=== PATIENT | female | born 1960 | race Caucasian/White ===

== ENCOUNTER 2018-02-17 11:26 | Emergency (ER) | payer SELFPAY ==
[~2018-02-17] VITALS: Ht 167.6 cm; Wt 66.0 kg
[2018-02-17 11:36] VITALS: O2SAT 100
--- NOTE | 2018-02-17 11:44 | PD ---
HPI Chief Complaint: Dog bite Time Seen by Provider: 11:29 Travel History International Travel<30 days: No Contact w/Intl Traveler<30days: No Traveled to known affect area: No History of Present Illness HPI Per patient she has 3 [employer] rescue dogs, and 1 of them apparently is abused and has a history of and has already bitten her in the past back in 2016 which is incidentally the last time she got her tetanus updated. At that time she laceration to her biceps medial aspect area that was repaired. Today she comes in with a right mid forearm dog bite with some lacerations are jagged and irregular. She is however able to move her fingers all independently Patient denies any previous allergies to medications PFSH Social History Tobacco Use: No Allergies-Medications (Allergen,Severity, Reaction): Coded Allergies: No Known Allergies (Unverified , 02/17/18) Reported Meds & Prescriptions Reported Meds & Active Scripts Active No Active Prescriptions or Reported Medications Review of Systems General / Constitutional: No: Fever Eyes: No: Visual changes HENT: No: Headaches Cardiovascular: No: Chest Pain or Discomfort Respiratory: No: Shortness of Breath Gastrointestinal: No: Abdominal Pain Genitourinary: No: Dysuria Musculoskeletal: No: Pain Skin: Positive Other (Dog bite with lacerations) Neurologic: No: Weakness Psychiatric: No: Depression Endocrine: No: Polydipsia Hematologic/Lymphatic: No: Easy Bruising Physical Exam Narrative GENERAL: SKIN: Warm and dry. Isolated injury to mid forearm right: LACERATION#3 LOCATION: dorsal right arm LENGTH: 1 cm NUMBER OF STITCHES/RAJENDRA: 1 suture LACERATION#4 LOCATION: dorsal right arm LENGTH: 1 cm NUMBER OF STITCHES/RAJENDRA: 1 suture LACERATION#1 LOCATION: ventral right arm LENGTH: 5 cm . LACERATION#2 LOCATION: ventral right arm LENGTH: 5 cm NUMBER OF STITCHES/RAJENDRA: 7 sutures (superficial), 1 (deep) HEAD: Atraumatic. Normocephalic. EYES: Pupils equal and round. No scleral icterus. No injection or drainage. ENT: No nasal bleeding or discharge. Mucous membranes pink and moist. NECK: Trachea midline. No JVD. CARDIOVASCULAR: Regular rate and rhythm. RESPIRATORY: No accessory muscle use. Clear to auscultation. Breath sounds equal bilaterally. GASTROINTESTINAL: Abdomen soft, non-tender, nondistended. MUSCULOSKELETAL: Extremities without clubbing, cyanosis, or edema. No obvious deformities. NEUROLOGICAL: Awake and alert. No obvious cranial nerve deficits. Motor grossly within normal limits. Five out of 5 muscle strength in the arms and legs. Normal speech. PSYCHIATRIC: Appropriate mood and affect; insight and judgment normal. Data Data Last Documented VS Vital Signs Date Time Temp Pulse Resp B/P (MAP) Pulse Ox O2 Delivery O2 Flow Rate FiO2 02/17/18 12:10 75 21 125/79 (94) 100 Room Air Orders Orders I-Stat Profile (02/17/18 11:30) Complete Blood Count With Diff (02/17/18 11:30) Prothrombin Time / Inr (Pt) (02/17/18 11:30) Act Partial Throm Time (Ptt) (02/17/18 11:30) Type And Screen (02/17/18 11:30) Iv Access Insert/Monitor (02/17/18 11:30) Ecg Monitoring (02/17/18 11:30) Oximetry (02/17/18 11:30) Oxygen Administration (02/17/18 11:30) Forearm (2vws) (02/17/18 ) Splint Or Brace Apply/Monitor (02/17/18 11:37) Comprehensive Metabolic Panel (02/17/18 11:37) Creatine Kinase (Cpk) (02/17/18 11:37) Lidocaine Pf 1% Inj (Xylocaine-Mpf 1% In (02/17/18 12:00) Lidocaine Pf 1% Inj (Xylocaine-Mpf 1% In (02/17/18 12:00) Morphine Inj (Morphine Inj) (02/17/18 12:00) Ondansetron Inj (Zofran Inj) (02/17/18 12:00) Piperacil-Tazo 3.375 Gm Premix (Zosyn 3. (02/17/18 12:30) Clindamycin 900 Mg/Ns Premix (Cleocin 90 (02/17/18 12:30) Ondansetron Inj (Zofran Inj) (02/17/18 12:30) Morphine Inj (Morphine Inj) (02/17/18 12:30) Splinting (02/17/18 ) Labs Laboratory Tests Test 02/17/18 11:20 02/17/18 11:30 White Blood Count 8.3 TH/MM3 Red Blood Count 3.84 MIL/MM3 Hemoglobin 11.5 GM/DL Hematocrit 34.8 % Mean Corpuscular Volume 90.6 FL Mean Corpuscular Hemoglobin 29.9 PG Mean Corpuscular Hemoglobin Concent 33.0 % Red Cell Distribution Width 15.3 % Platelet Count 258 TH/MM3 Mean Platelet Volume 8.5 FL Neutrophils (%) (Auto) 67.9 % Lymphocytes (%) (Auto) 24.8 % Monocytes (%) (Auto) 5.0 % Eosinophils (%) (Auto) 1.6 % Basophils (%) (Auto) 0.7 % Neutrophils # (Auto) 5.7 TH/MM3 Lymphocytes # (Auto) 2.1 TH/MM3 Monocytes # (Auto) 0.4 TH/MM3 Eosinophils # (Auto) 0.1 TH/MM3 Basophils # (Auto) 0.1 TH/MM3 CBC Comment DIFF FINAL Differential Comment Bedside Hemoglobin 10.2 G/DL Bedside Hematocrit 30.0 % Prothrombin Time 10.7 SEC Prothromb Time International Ratio 1.1 RATIO Activated Partial Thromboplast Time 22.3 SEC Bedside Sodium 141 MMOL/L Blood Urea Nitrogen 18 MG/DL Creatinine 0.93 MG/DL Random Glucose 106 MG/DL Total Protein 6.6 GM/DL Albumin 3.1 GM/DL Calcium Level 8.2 MG/DL Alkaline Phosphatase 81 U/L Aspartate Amino Transf (AST/SGOT) 23 U/L Alanine Aminotransferase (ALT/SGPT) 18 U/L Total Bilirubin 0.3 MG/DL Sodium Level 142 MEQ/L Potassium Level 3.9 MEQ/L Chloride Level 113 MEQ/L Carbon Dioxide Level 18.4 MEQ/L Bedside Potassium 3.8 MMOL/L Bedside Chloride 110 MMOL/L Anion Gap 11 MEQ/L Bedside Blood Urea Nitrogen 18 MG/DL Bedside Creatinine 0.9 MG/DL Estimat Glomerular Filtration Rate 52 ML/MIN Bedside Glucose 106 MG/DL Total Creatine Kinase 170 U/L MDM Medical Decision Making Medical Screen Exam Complete: Yes Emergency Medical Condition: Yes Medical Record Reviewed: Yes Differential Diagnosis Dogbite lacerations versus retained teeth or metal foreign bodies versus forearm fracture Narrative Course Although the lacerations of large defects and does not appear to involve much of the deeper layers such as tear of the muscles or tendons, patient will be given Zosyn and clindamycin IV, tetanus does not need to be updated, pain medication will be given, and lacerations will be loosely reapproximated BY JANET NG please see his note for details Coagulation profile is within normal limits CBC shows no leukocytosis, H&H at 11 and 35, normal platelet count, no left shift Chemistry shows normal electrolytes, normal kidney/liver functions O+ Per radiologist report extensive soft tissue abnormalities but without any bone fractures noted intact form and no retained radiopaque foreign bodies. Diagnosis Primary Impression: Dog bite with extensive laceration status post repair Patient Instructions: Animal Bite (ED), General Instructions, Laceration (ED) Scripts Ketorolac (Ketorolac) 10 Mg Tab 10 MG PO TID Y for Pain Management, #18 TAB 0 Refills Prov: Niko Lozano MD 02/17/18 Hydrocodone-Acetaminophen ([place]) 10-325 Mg Tab 1 TAB PO Q6H Y for PAIN, #15 TAB 0 Refills Prov: Niko Lozano MD 02/17/18 Sulfamethoxazole-Trimethoprim (Bactrim DS) 800-160 Mg Tab 1 TAB PO BID for Infection, #20 TAB 0 Refills Prov: Niko Lozano MD 02/17/18 Amoxicillin-Clavulanate (Augmentin) 875-125 Mg Tab 1 TAB PO BID for Infection for 10 Days, #20 TAB 0 Refills Prov: Niko Lozano MD 02/17/18 Disposition: 01 DISCHARGE HOME Condition: Stable Niko Lozano MD Feb 17, 2018 11:44
--- NOTE | 2018-02-17 11:51 | RADRPT ---
EXAM DATE/TIME: 02/17/2018 11:28 [place] COMPARISON: No previous studies available for comparison. INDICATIONS : Right forearm laceration from dog bite. Trauma alert. MEDICAL HISTORY : None. SURGICAL HISTORY : None. ENCOUNTER: Initial ACUITY: 1 day PAIN SCORE: 8/10 LOCATION: Right middle forearm FINDINGS: Two-view examination of the forearm demonstrate extensive soft tissue irregularity, multiple collecti ons of gas in the subcutaneous tissues, and prominent soft tissue swelling volarly. No definite radi opaque foreign bodies. The osseous structures of the forearm appear grossly intact. There are 2 hem oclips seen in the antecubital fossa region. CONCLUSION: Extensive soft tissue abnormalities in the form. Osseous structures are radiographically intact. Fo kendra Sanchez MD on February 17, 2018 at 11:48 Board Certified Radiologist. This report was verified electronically.
[2018-02-17 11:56] LABS: AUTOMATED NEUTROPHIL # 5.7 TH/MM3 (1.8-7.7); BASOPHIL # 0.1 TH/MM3 (0-0.2); BASOPHIL % 0.7 % (0.0-2.0); EOSINOPHIL # 0.1 TH/MM3 (0-0.4); EOSINOPHIL % 1.6 % (0.0-4.0); HEMATOCRIT 34.8 % (35.0-46.0); HEMOGLOBIN 11.5 GM/DL (11.6-15.3); LYMPH % 24.8 % (9.0-44.0); LYMPHOCYTE # 2.1 TH/MM3 (1.0-4.8); MEAN CELL VOLUME 90.6 FL (80.0-100.0); MEAN CORPUSCULAR HEMOGLOBIN 29.9 PG (27.0-34.0); MEAN PLATELET VOLUME 8.5 FL (7.0-11.0); MONOCYTE # 0.4 TH/MM3 (0-0.9); NEUT % 67.9 % (16.0-70.0); PLATELET COUNT 258 TH/MM3 (150-450); RED BLOOD COUNT 3.84 MIL/MM3 (4.00-5.30); RED CELL DISTRIBUTION WIDTH 15.3 % (11.6-17.2); WHITE BLOOD COUNT 8.3 TH/MM3 (4.0-11.0)
[2018-02-17] MEDS ORDERED: LIDOCAINE HCL 1% PF 30 ML VIAL INFIL ONE ×2 (12:00)
[2018-02-17] MEDS ORDERED: ONDANSETRON HCL 4 MG/2 ML VIAL IVP ONE (12:00)
[2018-02-17] MEDS ORDERED: MORPHINE SULFATE 4 MG/ML INJ IV PUSH ONE (12:00)
[2018-02-17 12:06] LABS: PROTHROMBIN TIME - PATIENT 10.7 SEC (9.8-11.6)
[2018-02-17 12:10] VITALS: BP 125/79; PULSE 75; RESP 21; O2SAT 100
[2018-02-17 12:10] LABS: INTERNATIONAL NORMALIZED RATIO 1.1 RATIO
[2018-02-17 12:15] LABS: ALBUMIN 3.1 GM/DL (3.4-5.0); AST (GOT) 23 U/L (15-37); BICARBONATE 18.4 MEQ/L (21.0-32.0); BLOOD UREA NITROGEN 18 MG/DL (7-18); CALCIUM 8.2 MG/DL (8.5-10.1); CHLORIDE 113 MEQ/L (98-107); CREATININE 0.93 MG/DL (0.50-1.00); GLOMERULAR FILTRATION RATE 52 ML/MIN (>89); GLUCOSE,RANDOM 106 MG/DL (74-106); SODIUM (NA) 142 MEQ/L (136-145)
[2018-02-17 12:16] LABS: ALT (GPT) 18 U/L (10-53)
[2018-02-17 12:18] LABS: ALKALINE PHOSPHATASE 81 U/L (45-117); TOTAL BILIRUBIN ADULT 0.3 MG/DL (0.2-1.0); TOTAL PROTEIN 6.6 GM/DL (6.4-8.2)
[2018-02-17] MEDS ORDERED: CLINDAMYCIN 900 MG/NS PREMIX 50 ML IV ONE (12:30)
[2018-02-17] MEDS ORDERED: PIPERACIL-TAZO 3.375 GM PREMIX 50 ML IV ONE (12:30)
[2018-02-17] MEDS ORDERED: ONDANSETRON HCL 4 MG/2 ML VIAL IV PUSH ONE (12:30)
[2018-02-17] MEDS ORDERED: MORPHINE SULFATE 2 MG/ML SYRINGE IV PUSH ONE (12:30)
--- NOTE | 2018-02-17 13:49 | PD ---
Physical Exam Date Seen by Provider: Feb 17, 2018 Time Seen by Provider: 13:46 Narrative Trauma alert patient that presents to the ED for dog bites to right hand. Please refer to my attending's note as he asked me to repair lacerations. On my physical exam patient able to extend and flex fingers and wrist but with a lot of pain. No obvious tendon lacerations but obvious bite aguirre to muscles noted especially on the two big bites to the ventral aspect. neurovascularly intact with no foreign body noted. my attending himself evaluated the patient and recommended suturing by me. has one 6 cm laceration/bite ry to the dorsal forearm with about 5-6 puncture like bite aguirre around this laceration with two about 1 cm and the rest less than 0.5 cms. On ventral aspect patient has two big lacerations about 5 cm each. Data Data Last Documented VS Vital Signs Date Time Temp Pulse Resp B/P (MAP) Pulse Ox O2 Delivery O2 Flow Rate FiO2 02/17/18 12:10 75 21 125/79 (94) 100 Room Air Orders Orders I-Stat Profile (02/17/18 11:30) Complete Blood Count With Diff (02/17/18 11:30) Prothrombin Time / Inr (Pt) (02/17/18 11:30) Act Partial Throm Time (Ptt) (02/17/18 11:30) Type And Screen (02/17/18 11:30) Iv Access Insert/Monitor (02/17/18 11:30) Ecg Monitoring (02/17/18 11:30) Oximetry (02/17/18 11:30) Oxygen Administration (02/17/18 11:30) Forearm (2vws) (02/17/18 ) Splint Or Brace Apply/Monitor (02/17/18 11:37) Comprehensive Metabolic Panel (02/17/18 11:37) Creatine Kinase (Cpk) (02/17/18 11:37) Lidocaine Pf 1% Inj (Xylocaine-Mpf 1% In (02/17/18 12:00) Lidocaine Pf 1% Inj (Xylocaine-Mpf 1% In (02/17/18 12:00) Morphine Inj (Morphine Inj) (02/17/18 12:00) Ondansetron Inj (Zofran Inj) (02/17/18 12:00) Piperacil-Tazo 3.375 Gm Premix (Zosyn 3. (02/17/18 12:30) Clindamycin 900 Mg/Ns Premix (Cleocin 90 (02/17/18 12:30) Ondansetron Inj (Zofran Inj) (02/17/18 12:30) Morphine Inj (Morphine Inj) (02/17/18 12:30) Splinting (02/17/18 ) Labs Laboratory Tests Test 02/17/18 11:20 02/17/18 11:30 White Blood Count 8.3 TH/MM3 Red Blood Count 3.84 MIL/MM3 Hemoglobin 11.5 GM/DL Hematocrit 34.8 % Mean Corpuscular Volume 90.6 FL Mean Corpuscular Hemoglobin 29.9 PG Mean Corpuscular Hemoglobin Concent 33.0 % Red Cell Distribution Width 15.3 % Platelet Count 258 TH/MM3 Mean Platelet Volume 8.5 FL Neutrophils (%) (Auto) 67.9 % Lymphocytes (%) (Auto) 24.8 % Monocytes (%) (Auto) 5.0 % Eosinophils (%) (Auto) 1.6 % Basophils (%) (Auto) 0.7 % Neutrophils # (Auto) 5.7 TH/MM3 Lymphocytes # (Auto) 2.1 TH/MM3 Monocytes # (Auto) 0.4 TH/MM3 Eosinophils # (Auto) 0.1 TH/MM3 Basophils # (Auto) 0.1 TH/MM3 CBC Comment DIFF FINAL Differential Comment Bedside Hemoglobin 10.2 G/DL Bedside Hematocrit 30.0 % Prothrombin Time 10.7 SEC Prothromb Time International Ratio 1.1 RATIO Activated Partial Thromboplast Time 22.3 SEC Bedside Sodium 141 MMOL/L Blood Urea Nitrogen 18 MG/DL Creatinine 0.93 MG/DL Random Glucose 106 MG/DL Total Protein 6.6 GM/DL Albumin 3.1 GM/DL Calcium Level 8.2 MG/DL Alkaline Phosphatase 81 U/L Aspartate Amino Transf (AST/SGOT) 23 U/L Alanine Aminotransferase (ALT/SGPT) 18 U/L Total Bilirubin 0.3 MG/DL Sodium Level 142 MEQ/L Potassium Level 3.9 MEQ/L Chloride Level 113 MEQ/L Carbon Dioxide Level 18.4 MEQ/L Bedside Potassium 3.8 MMOL/L Bedside Chloride 110 MMOL/L Anion Gap 11 MEQ/L Bedside Blood Urea Nitrogen 18 MG/DL Bedside Creatinine 0.9 MG/DL Estimat Glomerular Filtration Rate 52 ML/MIN Bedside Glucose 106 MG/DL Total Creatine Kinase 170 U/L MDM Medical Record Reviewed: Yes Supervised Visit with GISELLA: No Procedures Procedure Narrative LACERATION LOCATION: dorsal right arm LENGTH: 6 cm NUMBER OF STITCHES/RAJENDRA: 10 sutures (superficial), 2 (deep) REPAIR: The area of the laceration was prepped with Betadine and sterilely draped. The laceration was infiltrated with 1% Xylocaine. The wound was copiously irrigated and explored without evidence of foreign body, tendon injury or neurovascular injury. The wound was closed using 3-0 Vycril (deep), 3 -0 Prolene (superficial). This was a 2 layer repair. A sterile dressing was applied. The patient was advised to keep the dressing clean and dry. Patient tolerated the procedure well. LACERATION LOCATION: dorsal right arm LENGTH: 1 cm NUMBER OF STITCHES/RAJENDRA: 1 suture REPAIR: The area of the laceration was prepped with Betadine and sterilely draped. The laceration was infiltrated with 1% Xylocaine. The wound was copiously irrigated and explored without evidence of foreign body, tendon injury or neurovascular injury. The wound was closed using 3-0 Prolene ( superficial). This was a 2 layer repair. A sterile dressing was applied. The patient was advised to keep the dressing clean and dry. Patient tolerated the procedure well. LACERATION LOCATION: dorsal right arm LENGTH: 1 cm NUMBER OF STITCHES/RAJENDRA: 1 suture REPAIR: The area of the laceration was prepped with Betadine and sterilely draped. The laceration was infiltrated with 1% Xylocaine. The wound was copiously irrigated and explored without evidence of foreign body, tendon injury or neurovascular injury. The wound was closed using 3-0 Prolene ( superficial). This was a 2 layer repair. A sterile dressing was applied. The patient was advised to keep the dressing clean and dry. Patient tolerated the procedure well. LACERATION LOCATION: ventral right arm LENGTH: 5 cm NUMBER OF STITCHES/RAJENDRA: 10 sutures (superficial) REPAIR: The area of the laceration was prepped with Betadine and sterilely draped. The laceration was infiltrated with 1% Xylocaine. The wound was copiously irrigated and explored without evidence of foreign body, tendon injury or neurovascular injury. The wound was closed using 3-0 Prolene ( superficial). This was a 2 layer repair. A sterile dressing was applied. The patient was advised to keep the dressing clean and dry. Patient tolerated the procedure well. LACERATION LOCATION: ventral right arm LENGTH: 5 cm NUMBER OF STITCHES/RAJENDRA: 7 sutures (superficial), 1 (deep) REPAIR: The area of the laceration was prepped with Betadine and sterilely draped. The laceration was infiltrated with 1% Xylocaine. The wound was copiously irrigated and explored without evidence of foreign body, tendon injury or neurovascular injury. The wound was closed using 3-0 Vycril (deep), 3 -0 Prolene (superficial). This was a 2 layer repair. A sterile dressing was applied. The patient was advised to keep the dressing clean and dry. Patient tolerated the procedure well. Diagnosis Primary Impression: Dog bite with extensive laceration status post repair Additional Instruction: Wound care daily with soap and water. You can apply bandaid if needed. Neosporyn or OTC antibiotic ointment to area as needed twice a day for at least 2 weeks to help with scarring and prevent infection. Meoderma OTC for scarring if needed. Avoid sun exposure for 2 months as the sun could make scar darker and more noticeable. Get sutures removed in 14 days. See ED if worst. Scripts No Active Prescriptions or Reported Meds Disposition: 01 DISCHARGE HOME Condition: Stable Mode Partida Feb 17, 2018 13:49
[2018-02-17] MEDS ORDERED: AUGM875T3 PO (14:33)
[2018-02-17] MEDS ORDERED: KETO10 PO (14:33)
[2018-02-17] MEDS ORDERED: BACT800T5 PO (14:33)
[2018-02-17] MEDS ORDERED: HYDR-3366 PO (14:33)
== END 2018-02-17 17:38 | disposition home or self-care (01) ==
LOC: EDBD 11:26 → NEPI 11:26 → NEPE 17:38
DX: S51.851A Open bite of right forearm, initial encounter (principal); W54.0XXA Bitten by dog, initial encounter
CPT/HCPCS: 12034; 73090; 80053; 82550; 85025; 85610; 85730; 86850; 86900; 86901; 96365; 96368; 96375; 99285; 99291; J2270; J2405; J2543; 80048; G0390

== ENCOUNTER 2018-03-04 15:24 | Emergency (ER) | payer SELFPAY ==
[~2018-03-04] VITALS: Ht 167.6 cm; Wt 63.0 kg
[~2018-03-04 15:24] MED LIST: AUGM875T3 PO; BACT800T5 PO; HYDR-3366 PO; KETO10 PO
[2018-03-04 15:36] VITALS: BP 149/90; PULSE 61; RESP 16; TEMP 97.8; O2SAT 100
--- NOTE | 2018-03-04 16:27 | PD ---
HPI Chief Complaint: Skin Problem Time Seen by Provider: 15:46 Travel History International Travel<30 days: No Contact w/Intl Traveler<30days: No Traveled to known affect area: No History of Present Illness HPI 58-year-old female presents to the emergency department status post significant dog bite to the right forearm on 02/18/2018. Patient has multiple lacerations at that time which were sutured. She is continued on her antibiotics and has very few complaints at this time. She is here for wound check and suture removal. She has no known drug allergies. [facility] Past Medical History Medical History: Denies Significant Hx Diminished Hearing: No Tetanus Vaccination: < 5 Years ?: Not Past Surgical History Surgical History: No Previous Surgery Social History Alcohol Use: No Tobacco Use: No Substance Use: No Allergies-Medications (Allergen,Severity, Reaction): Coded Allergies: No Known Allergies (Unverified , 03/04/18) Reported Meds & Prescriptions Reported Meds & Active Scripts Active No Active Prescriptions or Reported Medications Review of Systems General / Constitutional: No: Fever Eyes: No: Visual changes HENT: No: Headaches Cardiovascular: No: Chest Pain or Discomfort Respiratory: No: Shortness of Breath Gastrointestinal: No: Abdominal Pain Genitourinary: No: Dysuria Musculoskeletal: No: Pain Skin: Positive Lesions (See history of present illness), No Rash Neurologic: No: Weakness Psychiatric: No: Depression Endocrine: No: Polydipsia Hematologic/Lymphatic: No: Easy Bruising Physical Exam Narrative GENERAL: Patient appears in no acute distress SKIN: Warm and dry. Normal color. Normal turgor. Patient has multiple lacerations to the right forearm with sutures in place. There is localized induration and erythema without significant signs of wound dehiscence or deep cellulitis or abscess. HEAD: Atraumatic. Normocephalic. EYES: Pupils equal and round. No scleral icterus. No injection or drainage. ENT: No nasal bleeding or discharge. Mucous membranes pink and moist. NECK: Trachea midline. No JVD. CARDIOVASCULAR: Regular rate and rhythm. RESPIRATORY: No accessory muscle use. Clear to auscultation. Breath sounds equal bilaterally. MUSCULOSKELETAL: Extremities without clubbing, cyanosis, or edema. No obvious deformities. NEUROLOGICAL: Awake and alert. No obvious cranial nerve deficits. Motor grossly within normal limits. Five out of 5 muscle strength in the arms and legs. Normal speech. PSYCHIATRIC: Appropriate mood and affect; insight and judgment normal. Data Data Last Documented VS Vital Signs Date Time Temp Pulse Resp B/P (MAP) Pulse Ox O2 Delivery O2 Flow Rate FiO2 03/04/18 15:36 97.8 61 16 149/90 (109) 100 MDM Medical Decision Making Medical Screen Exam Complete: Yes Emergency Medical Condition: Yes Medical Record Reviewed: Yes Differential Diagnosis Dog bite. Laceration. Wound check. Suture removal. Narrative Course All sutures are removed without difficulty. Dressing is placed Wound care is discussed with the patient. Patient to finish antibiotics as previously prescribed. Patient to follow-up only as needed. Diagnosis Primary Impression: Encounter for removal of sutures Additional Impression: Dog bite of right forearm Qualified Codes: S51.851A - Open bite of right forearm, initial encounter; W54.0XXA - Bitten by dog, initial encounter Patient Instructions: General Instructions Additional Instructions: All sutures are removed without difficulty. Dressing is placed Wound care is discussed with the patient. Patient to finish antibiotics as previously prescribed. Patient to follow-up only as needed. Med/Other Pt SpecificInfo: Wound Care Scripts No Active Prescriptions or Reported Meds Disposition: 01 DISCHARGE HOME Condition: Stable Imtiaz Candelario Mar 04, 2018 16:27
== END 2018-03-04 16:37 | disposition home or self-care (01) ==
LOC: NEPK 15:24
DX: Z48.02 Encounter for removal of sutures (principal); S51.851D Open bite of right forearm, subsequent encounter; W54.0XXD Bitten by dog, subsequent encounter
CPT/HCPCS: 99281